=== PATIENT | male | born 1950 | race Native Hawaiian/Other Pacific Islander ===

== ENCOUNTER → 2018-05-13 | Outpatient (CLI) | payer OTHER ==
[~2018-05-13] MED LIST: GADOBUTROL 10 ML VIAL IVP ONE; LIDOCAINE 1% 300 MG/30 ML SDV ONE
== END ==
LOC: FIMAGING 12:51
PROVIDERS: ATTEND Specialist
DX: N40.2 Nodular prostate without lower urinary tract symptoms (principal); N40.0 Benign prostatic hyperplasia without lower urinary tract symptoms
CPT/HCPCS: 72197; 76377; A9585; 82565-PO

== ENCOUNTER → 2018-05-13 | Outpatient (CLI) | payer OTHER | LOC: FIMAGING 12:50 | DX: J84.10 Pulmonary fibrosis, unspecified (principal); R91.1 Solitary pulmonary nodule; Z87.891 Personal history of nicotine dependence; Z85.46 Personal history of malignant neoplasm of prostate ==